=== PATIENT | male | born 1985 | race Caucasian/White ===

== ENCOUNTER 2018-09-22 09:43 | Day surgery (SDC) | payer BC, OTHER ==
[2018-09-19 17:15] VITALS: BMI 28.0
[2018-09-22] MEDS ORDERED: BUPIVACAINE HCL/PF 0.5% (5MG/ML) 10 ML VIAL ONE (10:52)
[2018-09-22] MEDS ORDERED: LIDOCAINE HCL 1%, 10 MG/ML (20ML VIAL) ONE (10:52)
[2018-09-22] MEDS ORDERED: MIDAZOLAM HCL 2 MG/2 ML SINGLE DOSE VIAL ONE ×2 (11:22)
[2018-09-22] MEDS ORDERED: ceFAZolin SODIUM 1 GM VIAL IVPB ONE (11:34)
[2018-09-22] MEDS ORDERED: ceFAZolin SODIUM 1 GM VIAL ONE (11:34)
[2018-09-22] MEDS ORDERED: PROPOFOL 20 ML ONE (11:35)
[2018-09-22] MEDS ORDERED: BUPIVACAINE HCL/PF (5 MG/ML) 30 ML VIAL IJ ONE (11:36)
[2018-09-22] MEDS ORDERED: LIDOCAINE HCL 1%, 10 MG/ML (20ML VIAL) NR ONE (11:36)
[2018-09-22] MEDS ORDERED: BACITRACIN 15 GM TUBE TOPICAL OINTMENT ONE (11:51)
[2018-09-22] MEDS ORDERED: BACITRACIN 15 GM TUBE TOPICAL OINTMENT TP ONE (11:56)
[2018-09-22] MEDS ORDERED: oxyCODONE HCL 5 MG TABLET PO PRN (12:02)
--- NOTE | 2018-09-22 12:03 | OP ---
Operative Note - Note: Operative Date: 09/22/18 Pre-Operative Diagnosis: infertility Operation: testis bx Post-Operative Diagnosis: Same as Pre-op Surgeon: Lane Rodriguez Anesthesia: General Estimated Blood Loss (mls): 1 Operative Report Dictated: Yes
[2018-09-22] MEDS ORDERED: ELECTROLYTE-148 SOLN 1,000 ML IV SCH (12:15)
[2018-09-22 13:40] VITALS: BP 108/52; PULSE 57; TEMP 97.6
--- NOTE | 2018-09-22 14:29 | OP ---
DATE OF OPERATION: 09/22/2018 PREOPERATIVE DIAGNOSIS: Male infertility. POSTOPERATIVE DIAGNOSIS: Male infertility. PROCEDURE: Right testis biopsy. SURGEON: uLla Jiménez MD INDICATIONS: The patient is a 33-year-old infertile male with oligospermia and smaller size testicles who elected to undergo testis biopsy to further evaluate the infertility. Risks, benefits and alternatives have been discussed at length. DESCRIPTION OF PROCEDURE: After informed consent was obtained, the patient was taken to the OR and placed supine on the table. With cardiac monitoring administered, general anesthesia was established. The scrotum was prepped and draped in standard surgical fashion. An approximately 1-inch right hemiscrotal incision was created with a no. 15 blade. Then, the dartos muscle and tunica vaginalis were incised until the tunica albuginea was identified. The tunica albuginea was incised for 0.5 cm until tubules were noted. A small portion of the tubules were excised to send to Pathology for biopsy. The tunica albuginea was then closed with a 4-0 Vicryl, and then the tunica vaginalis was closed with 3-0 chromic. The skin was then closed with 3-0 chromic. Dry sterile dressing was placed. The patient was awakened from anesthesia and transferred to recovery room in stable condition. There were no complications. ESTIMATED BLOOD LOSS: Minimal. LULA JIMÉNEZ M.D. [id number]
--- NOTE | 2018-09-28 18:36 | PATH ---
Surgical Pathology Report Patient Name: ALFREDO [facility] Med. Rec. #: [id number] /Age/Gender: 1985 (Age: 33) / M Account: [id number] Location: [facility] Taken: 09/22/2018 Received: 09/22/2018 Reported: 09/28/2018 Physicians: Lane Rodriguez M.D. Specimen(s) Received TESTICULAR BIOPSY Clinical History Male infertility Final Diagnosis TESTIS, BIOPSY: HYPOSPERMATOGENESIS WITH LATE PRIMARY SPERMATOCYTE SLOUGHING. SEE COMMENT. Comment: Decreased spermatogenesis is a non-specific finding and the possible etiologies may include but is not limited to: hormone dysfunction, androgen insensitivity, congenital germ cell abnormality, Sertoli cell dysfunction, Leydig cell dysfunction, chemical exposure, vascular malformation. Correlation with sperm count and clinical findings is recommended. Case sent for consultation to Dr. Marcus Knox from [place], [place], the diagnosis above reflects his opinion. Electronically Signed Christina Beck M.D. Gross Description Received in formalin labeled "testicle biopsy," is a 0.5 x 0.4 x 0.1 cm aggregate of amanda soft tissue fragments. The formalin is filtered and the specimen is entirely submitted in one cassette. 09/22/201809/22/2018
== END 2018-09-22 13:20 | disposition home or self-care (01) ==
LOC: JASU-SURG 09:43
PROVIDERS: ATTEND Urology
PROC: 0VB90ZX Excision of Right Testis, Open Approach, Diagnostic (ICD-10-PCS; principal; 2018-09-22 11:00)
DX: N46.11 Organic oligospermia (principal)
CPT/HCPCS: 88307-TC